=== PATIENT | female | born 1975 | race Caucasian/White ===

== ENCOUNTER 2017-09-03 17:04 | Emergency (ER) | payer OTHER ==
[2017-09-03 18:21] VITALS: BP 150/83
--- NOTE | 2017-09-03 18:47 | UC ---
FLU HPI - History of Current Complaint Chief Complaint: UCGeneralIllness Stated Complaint: SORE THROAT Time Seen by Provider: 09/03/17 18:12 Hx Obtained From: Patient Hx Last Menstrual Period: iud ?: No Onset/Duration: Gradual Onset - sick over past few days, child with active flu Pain Intensity: 5 Associated Signs & Symptoms: Positive: Fever, Cough, Sore Throat Related Hx: Possible Flu/Infectious Exposure - Allergy/Home Medications Allergies/Adverse Reactions: Allergies Allergy/AdvReac Type Severity Reaction Status Date / Time No Known Allergies Allergy Verified 09/03/17 18:21 Home Medications: Home Medications Venlafaxine EXT RELEASE CAP* [Effexor Xr CAP*] 75 mg PO DAILY 09/03/17 [History Confirmed 09/03/17] PMH/Surg Hx/FS Hx/Imm Hx Previously Healthy: Yes Psychological History: Depression - Surgical History Surgical History: Yes Surgery Procedure, Year, and Place: gall bladder - Family History Known Family History: Positive: None - Social History Occupation: Employed Full-time - [employer] Alcohol Use: Weekly Substance Use Type: Marijuana Smoking Status (MU): Current Every Day Smoker Cessation Counseling: Patient Advised to Stop - Immunization History Most Recent Influenza Vaccination: 2017 Review of Systems Constitutional: Fever, Fatigue Skin: Negative Eyes: Negative ENT: Sore Throat Respiratory: Cough Neurovascular: Negative Musculoskeletal: Negative Neurological: Negative Psychological: Negative Is Patient Immunocompromised?: No All Other Systems Reviewed And Are Negative: Yes Physical Exam Triage Information Reviewed: Yes Appearance: Well-Appearing, No Pain Distress, Well-Nourished Vital Signs: Initial Vital Signs Temp 97.9 F 09/03/17 18:17 Pulse 107 09/03/17 18:17 Resp 20 09/03/17 18:17 BP 150/83 09/03/17 18:17 Pulse Ox 97 09/03/17 18:17 Vital Signs Reviewed: Yes Eye Exam: Normal Eyes: Positive: Conjunctiva Clear ENT: Positive: Nasal congestion Neck exam: Normal Respiratory Exam: Normal Respiratory: Positive: Lungs clear Cardiovascular Exam: Normal Neurological Exam: Normal Psychological Exam: Normal Skin Exam: Normal Flu Course/Dx - Differential Dx/Diagnosis Differential Diagnosis/HQI/PQRI: Influenza, Upper Respiratory Infection, Other - strep Provider Diagnoses: influenza Discharge - Discharge Plan Condition: Stable Disposition: HOME Prescriptions: Oseltamivir CAP* [Tamiflu CAP*] 75 mg PO BID #10 cap Patient Education Materials: Influenza (ED) Forms: *Work Release Referrals: Suyapa Patton MD [Primary Care Provider] - 3 Days (if not improving) Additional Instructions: Rest, drink plenty of fluids Take Tamiflu as prescribed Report to ER if your symptoms worsen at any time
[2017-09-03] MEDS ORDERED: Oseltamivir CAP* 75 MG CAP PO ONE (18:56)
== END 2017-09-03 19:07 | disposition home or self-care (01) ==
LOC: UCEAST 17:04
DX: J11.1 Influenza due to unidentified influenza virus with other respiratory manifestations (principal); F32.9 Major depressive disorder, single episode, unspecified; Z90.49 Acquired absence of other specified parts of digestive tract; F12.90 Cannabis use, unspecified, uncomplicated; F17.210 Nicotine dependence, cigarettes, uncomplicated
CPT/HCPCS: 87502; 87651; 99202; A9270-GY; G0463

== ENCOUNTER 2019-06-11 07:03 | Emergency (ER) | payer OTHER ==
[2019-06-11 07:14] VITALS: BP 145/89
--- NOTE | 2019-06-11 07:25 | UC ---
Throat Pain/Nasal Jamni HPI - HPI Summary HPI Summary: 43 yo with sore throat x 2 days, without fever. She has a mild headache and cough. Poor sleep secondary to pain. - History of Current Complaint Chief Complaint: UCRespiratory Stated Complaint: SORE THROAT Time Seen by Provider: 06/11/19 07:11 Hx Obtained From: Patient Hx Last Menstrual Period: iud ?: No Onset/Duration: Sudden Onset, Lasting Days - 2 Severity: Moderate Pain Intensity: 6 Cough: Productive Associated Signs & Symptoms: Positive: Dysphagia, Hoarseness - Epiglottits Risk Factors Epiglottis Risk Factors: Negative - Allergies/Home Medications Allergies/Adverse Reactions: Allergies Allergy/AdvReac Type Severity Reaction Status Date / Time No Known Allergies Allergy Verified 06/11/19 07:14 Home Medications: Home Medications Acetaminophen TAB* [Tylenol TAB*] 650 mg PO Q4H PRN 06/11/19 [History Confirmed 06/11/19] PMH/Surg Hx/FS Hx/Imm Hx Previously Healthy: Yes Psychological History: Anxiety - Surgical History Surgical History: Yes Surgery Procedure, Year, and Place: gall bladder - Family History Known Family History: Positive: Non-Contributory - Social History Occupation: Employed Full-time Lives: With Family Alcohol Use: Occasionally Substance Use Type: None Smoking Status (MU): Heavy Every Day Tobacco Smoker Type: Cigarettes Amount Used/How Often: 1 PPD - Immunization History Most Recent Influenza Vaccination: 2017 Review of Systems All Other Systems Reviewed And Are Negative: Yes Constitutional: Positive: Fatigue Skin: Positive: Negative ENT: Positive: Sore Throat Respiratory: Positive: Cough Cardiovascular: Positive: Negative - No hx of hypertension Gastrointestinal: Positive: Negative Genitourinary: Positive: Negative Motor: Positive: Negative Neurovascular: Positive: Negative Musculoskeletal: Positive: Negative Neurological: Positive: Headache Psychological: Positive: Negative Is Patient Immunocompromised?: No Physical Exam Vital Signs: Initial Vital Signs Temp 97.3 F 06/11/19 07:08 Pulse 104 06/11/19 07:08 Resp 20 06/11/19 07:08 BP 145/89 06/11/19 07:08 Pulse Ox 96 06/11/19 07:08 Diagnostics - Laboratory Lab Results: Rapid strep negative. Throat Pain/Nasal Course/Dx - Course Course Of Treatment: Symptomatic treatment of viral pharyngitis. - Differential Dx/Diagnosis Differential Diagnosis/HQI/PQRI: Laryngitis, Pharyngitis, Tonsillitis, URI Provider Diagnosis: Pharyngitis Discharge ED - Sign-Out/Discharge Documenting (check all that apply): Patient Departure All imaging exams completed and their final reports reviewed: No Studies - Discharge Plan Condition: Stable Disposition: HOME Patient Education Materials: Pharyngitis (ED) Referrals: Suyapa Patton MD [Primary Care Provider] - Additional Instructions: The findings are consistent with a viral infection, with an erosion in the soft palate. Continue warm water and salt gargling and use the Magic Mouthwash which you have at home. If the sore throat continues beyond 7 days, please have a re-check. - Billing Disposition and Condition Condition: STABLE Disposition: Home
== END 2019-06-11 07:38 | disposition home or self-care (01) ==
LOC: UCEAST 07:03
DX: J02.9 Acute pharyngitis, unspecified (principal); R53.83 Other fatigue; F17.210 Nicotine dependence, cigarettes, uncomplicated
CPT/HCPCS: 87651; 99211; G0463

== ENCOUNTER 2019-06-14 15:11 | Emergency (ER) | payer OTHER ==
[2019-06-14 15:31] VITALS: BP 148/82
--- NOTE | 2019-06-14 15:35 | UC ---
Ear Complaint HPI - HPI Summary HPI Summary: Head congestion, sinus pressure, postnasal drainage over the past week. Today she has a left earache and sore throat. No fever or chills. No nausea vomiting or diarrhea. - History of Current Complaint Chief Complaint: UCEar Stated Complaint: EAR ACHE Time Seen by Provider: 06/14/19 15:13 Hx Obtained From: Patient Hx Last Menstrual Period: iud ?: No Onset/Duration: Gradual Onset, Lasting Days Severity Initially: Mild Severity Currently: Mild Pain Intensity: 4 Aggravating Factors: Nothing Alleviating Factors: Nothing Associated Signs/Symptoms: Positive: URI Symptoms Related History: Smoking - Allergies/Home Medications Allergies/Adverse Reactions: Allergies Allergy/AdvReac Type Severity Reaction Status Date / Time No Known Allergies Allergy Verified 06/11/19 07:14 PMH/Surg Hx/FS Hx/Imm Hx Previously Healthy: Yes - Surgical History Surgical History: Yes Surgery Procedure, Year, and Place: gall bladder - Family History Known Family History: Positive: None, Non-Contributory - Social History Alcohol Use: Occasionally Substance Use Type: None Smoking Status (MU): Heavy Every Day Tobacco Smoker Type: Cigarettes Amount Used/How Often: 1 PPD - Immunization History Most Recent Influenza Vaccination: 2017 Review of Systems All Other Systems Reviewed And Are Negative: Yes ENT: Positive: Sore Throat, Ear Ache, Nasal Discharge, Sinus Congestion, Sinus Pain/Tenderness Is Patient Immunocompromised?: No Physical Exam Triage Information Reviewed: Yes Appearance: Well-Appearing, No Pain Distress, Well-Nourished Vital Signs: Initial Vital Signs Temp 98.7 F 06/14/19 15:18 Pulse 88 06/14/19 15:18 Resp 16 06/14/19 15:18 BP 148/82 06/14/19 15:18 Pulse Ox 99 06/14/19 15:18 Vital Signs Reviewed: Yes Eyes: Positive: Conjunctiva Clear ENT: Positive: Hearing grossly normal, Pharyngeal erythema - Mild pharyngeal erythema., Nasal congestion - Yellow thick nasal coryza right nostril., Nasal drainage, TMs normal - Right tympanic membrane is pearly-abbasi with good land bah and light reflex, left tympanic membrane I am only able to visualize approximately one fourth of the membrane because of cerumen in ear canal however that appears pearly abbasi., Sinus tenderness - Sinuses nontender on palpation however the patient feels increased pressure over sinuses., Uvula midline. Negative: Tonsillar swelling, Tonsillar exudate, Trismus, Muffled voice, Hoarse voice Neck: Positive: Supple, Nontender, No Lymphadenopathy Respiratory: Positive: Lungs clear, Normal breath sounds, No accessory muscle use Cardiovascular: Positive: RRR, No Murmur, Pulses Normal, Brisk Capillary Refill Musculoskeletal Exam: Normal Neurological Exam: Normal Psychological Exam: Normal Skin Exam: Normal Ear Complaint Course/Dx - Course Course Of Treatment: I am going to treat the patient for a sinus infection, she is to change her toothbrush in 24 hours. Her throat is minimally erythematous I don't think she has strep throat but the amoxicillin will cover strep she has. She is agreeable to this plan of action and follow-up with her primary care provider if no improvement in 4 or 5 days. - Differential Dx/Diagnosis Provider Diagnosis: Sinusitis Discharge ED - Sign-Out/Discharge Documenting (check all that apply): Patient Departure All imaging exams completed and their final reports reviewed: No Studies - Discharge Plan Condition: Good Disposition: HOME Prescriptions: Amoxicillin PO (*) [Amoxicillin 875 MG (*)] 875 mg PO BID 10 Days #20 tab Patient Education Materials: Sinusitis (ED) Referrals: Suyapa Patton MD [Primary Care Provider] - Additional Instructions: Tylenol every 4 hours and may alternate with Motrin every 8 hours for pain. Definite follow-up with your primary care provider if no improvement in 4 or 5 days. Change her toothbrush in 24 hours. - Billing Disposition and Condition Condition: GOOD Disposition: Home
== END 2019-06-14 15:45 | disposition home or self-care (01) ==
LOC: UCEAST 15:11
DX: J32.9 Chronic sinusitis, unspecified (principal); H92.02 Otalgia, left ear; F17.210 Nicotine dependence, cigarettes, uncomplicated
CPT/HCPCS: 99212; G0463